=== PATIENT | female | born 1965 | race Two or more races ===

== ENCOUNTER 2020-09-08 06:30 | Day surgery (SDC) | payer OTHER | END 2020-09-08 12:35 | disposition home or self-care (01) | LOC: AMB-ENDOS 06:30 | PROVIDERS: ATTEND Colon & Rectal Surgery | DX: D12.2 Benign neoplasm of ascending colon (principal); D12.5 Benign neoplasm of sigmoid colon; K62.1 Rectal polyp; K64.8 Other hemorrhoids; Z20.828 Contact with and (suspected) exposure to other viral communicable diseases; Z12.11 Encounter for screening for malignant neoplasm of colon ==

== ENCOUNTER 2020-11-24 06:48 | Day surgery (SDC) | payer OTHER | END 2020-11-24 12:40 | disposition home or self-care (01) | LOC: AMB-ENDOS 06:48 | PROVIDERS: ATTEND Colon & Rectal Surgery | DX: D12.3 Benign neoplasm of transverse colon (principal); K64.8 Other hemorrhoids; Z20.822 Contact with and (suspected) exposure to COVID-19 ==